=== PATIENT | female | born 1990 | race Caucasian/White ===

== ENCOUNTER 2018-05-08 10:45 | Observation (INO) | payer OTHER ==
[~2018-05-08] VITALS: Ht 162.6 cm; Wt 114.3 kg
== END 2018-05-08 13:45 | disposition home or self-care (01) ==
LOC: SPU 10:45
PROVIDERS: ADMIT Obstetrics & Gynecology; ATTEND Obstetrics & Gynecology
DX: O14.93 Unspecified pre-eclampsia, third trimester (principal); Z3A.38 38 weeks gestation of pregnancy
CPT/HCPCS: 76819; G0378; 59025; 81002-TC

== ENCOUNTER 2018-05-14 11:12 | Inpatient (IN) | payer OTHER ==
[~2018-05-14] VITALS: Ht 160 cm; Wt 115.7 kg
[2018-05-14] MEDS ORDERED: OXYTOCIN/0.9 % SODIUM CHLORIDE 1,000 ML IV SCH (16:07)
[2018-05-14] MEDS ORDERED: NALBUPHINE HCL 10 MG/ML AMP IVP PRN (16:15)
[2018-05-14] MEDS ORDERED: DINOPROSTONE 10 MG SUPP VG ONE (16:15)
[2018-05-14] MEDS ORDERED: AMPICILLIN SODIUM 2 GM in NS 100 ML IV ONE (16:15)
[2018-05-14 16:27] VITALS: BP_SYST 127
[2018-05-14 16:50] LABS: BASOPHILS % (AUTO) 0.3 % (0.0-2.0); EOSINOPHILS # (AUTO) 0.1 K/uL (0.0-0.4); EOSINOPHILS % (AUTO) 1.1 % (0.0-4.0); HEMATOCRIT 36.7 % (36-48); LYMPHOCYTES # (AUTO) 1.3 K/uL (1.0-5.5); MEAN CORPUSCULAR HEMOGLOBIN 28 pg (27-31); MEAN CORPUSCULAR HGB CONC 33 % (32-36); MEAN CORPUSCULAR VOLUME 86 fL (79.0-98.0); MONOCYTES # (AUTO) 0.4 K/uL (0.0-1.0); NEUTROPHILS # (AUTO) 6.4 K/uL (1.8-7.7); NEUTROPHILS % (AUTO) 77.6 % (40.0-70.0); RED BLOOD CELL COUNT(AUTO) 4.27 MIL/uL (4.2-6.2); RED CELL DISTRIBUTION WIDTH 12.3 % (9.0-15.0); WHITE BLOOD COUNT (AUTO) 8.2 K/uL (4.8-10.8)
[2018-05-14 16:56] LABS: PLATELET COUNT (AUTO) 300 K/uL (130-430)
[2018-05-14] MEDS: LR 1,000 ML IV SCH (17:08)
[2018-05-14] MEDS: AMPICILLIN SODIUM 1 GM in NS 50 ML IV SCH (21:04)
[2018-05-15] MEDS: AMPICILLIN SODIUM 1 GM in NS 50 ML IV SCH ×6 (00:59→21:12)
[2018-05-15] MEDS ORDERED: DINOPROSTONE 10 MG SUPP VG PRN (04:00)
[2018-05-15] MEDS ORDERED: fentaNYL CITRATE/PF 100 MCG/2 ML AMP ONE ×4 (08:10→23:17)
[2018-05-15] MEDS ORDERED: FENT2mCg/mL-ROPIVA0.2%/NS EPID 150 ML EP SCH (08:10)
[2018-05-15] MEDS ORDERED: ROPIVACAINE 0.2% 100 ML ONE ×3 (08:10→23:17)
[2018-05-15] MEDS ORDERED: ONDANSETRON HCL 4 MG/2 ML VIAL IVP PRN (12:15)
[2018-05-15] MEDS ORDERED: ONDANSETRON HCL 4 MG/2 ML VIAL ONE (12:22)
[2018-05-15] MEDS: LR 1,000 ML IV SCH (21:00)
[2018-05-15] MEDS ORDERED: fentaNYL CITRATE/PF 100 MCG/2 ML AMP IVP ONE (22:20)
[2018-05-16] MEDS: AMPICILLIN SODIUM 1 GM in NS 50 ML IV SCH ×2 (01:04→05:22)
[2018-05-16] MEDS ORDERED: GENTAMICIN 120 mg/100 mL NS 100 ML IV ONE ×2 (04:30→04:45)
[2018-05-16] MEDS ORDERED: OXYTOCIN/0.9 % SODIUM CHLORIDE 1,000 ML IV SCH (07:08)
[2018-05-16] MEDS ORDERED: OXYTOCIN/0.9 % SODIUM CHLORIDE 1,000 ML IV ONE (07:08)
[2018-05-16] MEDS ORDERED: ANUSOL 1 EA SUPP.RECT (PREPARATION H) RC PRN (07:15)
[2018-05-16] MEDS ORDERED: METHYLERGONOVINE MALEATE 0.2 MG TABLET PO PRN (07:15)
[2018-05-16] MEDS ORDERED: TEMAZEPAM 15 MG CAPSULE PO PRN (07:15)
[2018-05-16] MEDS ORDERED: DERMOPLAST SPRAY TP PRN (07:15)
[2018-05-16] MEDS ORDERED: HYDROcodone/ACETAMIN 5-325 MG TAB (NORCO/ VICODIN) PO PRN ×2 (07:15)
[2018-05-16] MEDS ORDERED: SENNOSIDES/DOCUSATE SODIUM 1 TAB TABLET(SENOKOT-S) PO PRN (07:15)
[2018-05-16] MEDS ORDERED: WITCH HAZEL LEAF 1 MED.PAD MED.PAD TP PRN (07:15)
[2018-05-16] MEDS ORDERED: HYDROCORTISONE 0.5%, 28.35 GM TOPICAL CREAM TP PRN (07:15)
[2018-05-16] MEDS ORDERED: ACETAMINOPHEN 325 MG TABLET PO PRN (07:15)
[2018-05-16] MEDS ORDERED: LANOLIN 7 GM OINT. TP PRN (07:15)
[2018-05-16] MEDS ORDERED: RHO(D) IMMUNE GLOBULIN/MALTOSE 1500 UNITS/1.3 ML (WINHRO) IM PRN (07:15)
[2018-05-16] MEDS ORDERED: MEASLES,MUMPS&RUBELLA VACC/PF 12500 UNIT/0.5 ML VIAL SUBQ PRN (07:15)
[2018-05-16] MEDS ORDERED: OXYCODONE/ACETAMINOPHEN 5-325 TABLET ONE (07:56)
[2018-05-16] MEDS ORDERED: OXYCODONE/ACETAMINOPHEN 5-325 TABLET PO PRN ×2 (08:00)
[2018-05-16] MEDS: DOCUSATE SODIUM 100 MG CAPSULE PO PRN ×2 (09:37→18:00)
[2018-05-16] MEDS ORDERED: FENT2mCg/mL-ROPIVA0.2%/NS EPID 100 ML EP SCH (09:45)
[2018-05-16] MEDS: IBUPROFEN 600 MG TABLET PO SCH ×3 (11:34→23:33)
[2018-05-17] MEDS: DOCUSATE SODIUM 100 MG CAPSULE PO PRN (06:26)
[2018-05-17] MEDS: IBUPROFEN 600 MG TABLET PO SCH ×2 (06:26→12:45)
[2018-05-17 06:38] LABS: HEMATOCRIT 30.4 % (36-48); HEMOGLOBIN 10.4 g/dL (12.0-16.0)
--- NOTE | 2018-05-17 15:02 | NUR ---
Dietitian Recommendations * Recommend continuing regular diet per LP, RD Please refer to Nutrition Assessment for details.
== END 2018-05-17 16:00 | disposition home or self-care (01) | DRG 806 ==
LOC: SPU 11:12
PROVIDERS: ADMIT Obstetrics & Gynecology; ATTEND Obstetrics & Gynecology
PROC: 10E0XZZ Delivery of Products of Conception, External Approach (ICD-10-PCS; principal; 2018-05-16)
PROC: 0KQM0ZZ Repair Perineum Muscle, Open Approach (ICD-10-PCS; 2018-05-16)
PROC: 3E0R3BZ Introduction of Anesthetic Agent into Spinal Canal, Percutaneous Approach (ICD-10-PCS; 2018-05-16)
PROC: 00HU33Z Insertion of Infusion Device into Spinal Canal, Percutaneous Approach (ICD-10-PCS; 2018-05-16)
PROC: 3E0P7VZ Introduction of Hormone into Female Reproductive, Via Natural or Artificial Opening (ICD-10-PCS; 2018-05-16)
DX: O14.94 Unspecified pre-eclampsia, complicating childbirth (principal); Z68.42 Body mass index [BMI] 45.0-49.9, adult; Z37.0 Single live birth; O99.214 Obesity complicating childbirth; O99.824 Streptococcus B carrier state complicating childbirth; E66.01 Morbid (severe) obesity due to excess calories; O69.81X0 Labor and delivery complicated by cord around neck, without compression, not applicable or unspecified; O70.1 Second degree perineal laceration during delivery; Z3A.40 40 weeks gestation of pregnancy
CPT/HCPCS: 36415; 81002-TC; 85018-TC; 85025; 86592; 86886; 86900; 86901; J0290; J1580; J2405; J2590; J2795; J3010; J7120